=== PATIENT | female | born 1965 | race Two or more races ===

== ENCOUNTER 2021-02-02 23:03 | Emergency (ER) | payer MEDICAID ==
[~2021-02-02] VITALS: Ht 157.5 cm; Wt 61.2 kg
[~2021-02-02 23:03] MED LIST: CEPH500C; HYDR5CAP; IBUP800T27
[2021-02-02 23:04] VITALS: BP 135/87
== END 2021-02-03 02:15 | disposition left against medical advice (07) ==
LOC: ER 23:03
DX: M79.671 Pain in right foot (principal); Z53.21 Procedure and treatment not carried out due to patient leaving prior to being seen by health care provider
CPT/HCPCS: 73610

== ENCOUNTER 2022-02-25 09:55 | Emergency (ER) | payer MEDICAID ==
[~2022-02-25] VITALS: Ht 157.5 cm; Wt 168.0 kg
[2022-02-25 10:34] LABS: Albumin 3.7 g/dL (3.4-5.0); Calcium 8.4 mg/dL (8.5-10.1); Potassium 3.5 mmol/L (3.5-5.1)
[2022-02-25 10:37] LABS: BUN/Creatinine Ratio 9.7; Bilirubin, Total 0.7 mg/dL (0.2-1.0); Total Protein 7.4 g/dL (6.4-8.2)
[2022-02-25 10:38] LABS: Basophils # (auto) 0 10 ^3/uL (0-0.2); Basophils % (auto) 0.5 % (0.0-2.0); Eosinophils # (auto) 0.1 10 ^3/uL (0-0.8); Eosinophils % (auto) 0.9 % (0.0-7.0); Hematocrit 38.8 % (36.0-46.0); Hemoglobin 12.9 g/dL (12.2-16.2); Lymphocytes # (auto) 0.5 10 ^3/uL (0.4-5.4); Lymphocytes % (auto) 6.9 % (10.0-50.0); Mean Corpuscular Hemoglobin 29.3 pg (28.0-32.0); Mean Corpuscular Hgb Conc. 33.4 g/dL (32.0-36.0); Mean Corpuscular Volume 87.8 fL (80.0-100.0); Monocytes # (auto) 0.4 10 ^3/uL (0-1.3); Monocytes % (auto) 4.7 % (0.0-12.0); Neutrophils # (auto) 6.7 10 ^3/uL (1.6-8.6); Nucleated Red Blood Cells % 0.1 %; Red Blood Cells 4.42 10^6/uL (4.0-5.20); Red Cell Distribution Width 13.4 % (11.8-14.3); White Blood Cell 7.7 10^3/uL (4.4-10.8)
[2022-02-25 12:49] LABS: Urine Bacteria MOD /hpf (None Seen); Urine Blood TRACE /uL (Negative); Urine Mucus FEW (None Seen); Urine WBC 5 /hpf (0 - 5)
[2022-02-25] MEDS ORDERED: cefTRIAXone 1GM/50ML D5W 50 ML IV ONE (13:30)
[2022-02-25 14:01] VITALS: BP 143/76
[2022-02-25] MEDS ORDERED: DEXT1SYP9 GT (15:13)
[2022-02-25] MEDS ORDERED: CEFD300C2 PO (15:13)
== END 2022-02-25 15:40 | disposition home or self-care (01) ==
LOC: ER 09:55 → EDBD 09:55 → ER 15:38
DX: J40 Bronchitis, not specified as acute or chronic (principal); Z20.822 Contact with and (suspected) exposure to COVID-19
CPT/HCPCS: 36415; 71045; 80053; 81001; 84484; 85025; 87426; 93005; 96365; 99285; J0696

== ENCOUNTER 2022-09-10 20:03 | Emergency (ER) | payer MEDICAID ==
[~2022-09-10] VITALS: Ht 157.5 cm; Wt 80.4 kg
[~2022-09-10 20:03] MED LIST changes: +CEFD300C2 PO; +DEXT1SYP9 GT
[2022-09-10 20:29] VITALS: BP 159/87
[2022-09-10] MEDS ORDERED: HYDROcodone-ACET 10/325MG TAB PO ONE (20:30)
[2022-09-10] MEDS ORDERED: HYDR-4902 PO (21:39)
== END 2022-09-10 23:57 | disposition left against medical advice (07) ==
LOC: ER 20:03
DX: M79.661 Pain in right lower leg (principal); F17.210 Nicotine dependence, cigarettes, uncomplicated; Z88.6 Allergy status to analgesic agent
CPT/HCPCS: 93005; 93971